=== PATIENT | male | born 1950 | race Caucasian/White ===

== ENCOUNTER → 2017-11-11 | Outpatient (CLI) | payer MEDICARE | END | disposition home or self-care (01) | LOC: LAB EV 19:25 → LAB SHORT 19:25 | DX: R19.7 Diarrhea, unspecified (principal) | CPT/HCPCS: 87015; 87045; 87046; 87177; 87205; 87209; 87899 ==

== ENCOUNTER → 2020-02-13 | Outpatient (CLI) | payer MEDICARE ==
[~2020-02-13] MED LIST: ACYC800 PO; ATOR10; CENTRUM SILVER1 EAC2; Lisinopril2.5 MG PO; PRAV20 PO; Prilosec10 M1; TRIDERM28.4 GM; XARELTO15 MG PO
[2020-02-13 12:38] LABS: BASOPHILS ABSOLUTE AUTO 0.07 K/mm3 (0.00-0.23); BASOPHILS PERCENT AUTO 1 % (0-2); EOSINOPHILS ABSOLUTE AUTO 0.21 K/mm3 (0.00-0.68); EOSINOPHILS PERCENT AUTO 3 % (0-6); Hematocrit 47.3 % (37.0-53.0); Hemoglobin 15.5 g/dL (13.5-17.5); IMMATURE GRAN ABSOLUTE AUTO 0.04 K/mm3 (0.00-0.10); IMMATURE GRAN PERCENT AUTO 1 % (0-1); LYMPHOCYTES ABSOLUTE AUTO 2.81 K/mm3 (0.84-5.20); LYMPHOCYTES PERCENT AUTO 36 % (21-46); MONOCYTES ABSOLUTE AUTO 0.76 K/mm3 (0.16-1.47); MONOCYTES PERCENT AUTO 10 % (4-13); Mean Corpuscular HGB 29.7 pg (26.0-34.0); Mean Corpuscular HGB Conc 32.8 g/dL (31.5-36.5); Mean Corpuscular Volume 91 fL (80-100); NEUTROPHILS ABSOLUTE AUTO 4.01 K/mm3 (1.96-9.15); NEUTROPHILS PERCENT AUTO 51 % (41-73); Platelet Count 261 K/mm3 (150-400); RDW Coefficient Variation 13.2 % (11.7-14.2); RDW Standard Deviation 44.6 fL (35.1-46.3); Red Blood Cell Count 5.22 M/mm3 (4.30-5.90)
[2020-02-13 13:14] LABS: Alanine Aminotransfer (ALT/SGP 44 U/L (12-78); Albumin, Blood 3.7 g/dL (3.4-5.0); Albumin/Globulin Ratio 1.1 (0.8-1.8); Alk Phos 95 U/L (50-136); Anion Gap 8 mmol/L (6-16); Aspartate Aminotrans (AST/SGOT 26 U/L (12-37); Bilirubin, Total 0.5 mg/dL (0.1-1.0); Blood Urea Nitrogen 19 mg/dL (8-24); Bun/Creatinine Ratio 19.2 (12.0-20.0); CHOL/HDL RATIO 6.5; CO2, Blood 22 mmol/L (21-32); Calcium, Blood 9.4 mg/dL (8.5-10.1); Chloride, Blood 110 mmol/L (98-108); Cholesterol 208 mg/dL (50-200); Creatinine, Blood 0.99 mg/dL (0.60-1.20); Globulin, Blood 3.4 g/dL (2.2-4.0); Glomerular Filtration Rate >60 (60-); Glucose, Blood 86 mg/dL (70-99); HDL Cholesterol 32 mg/dL (>39); LDL/HDL RATIO 3.8; Low Density Lipoprotein Chol 121 mg/dL (0-110); Sodium, Blood 140 mmol/L (136-145); Total Protein, Blood 7.1 g/dL (6.4-8.2); Triglycerides 274 mg/dL (30-160); Very Low Density Lipoprot Chol 54 mg/dL (6-32)
== END | disposition home or self-care (01) ==
LOC: LAB 08:15
PROVIDERS: Family Medicine
DX: E78.5 Hyperlipidemia, unspecified (principal); I10 Essential (primary) hypertension
CPT/HCPCS: 80053; 80061; 85025

== ENCOUNTER 2020-03-14 06:08 | Day surgery (SDC) | payer MEDICARE ==
[~2020-03-14] VITALS: Ht 170.2 cm; Wt 94.8 kg
[~2020-03-14 06:08] MED LIST changes: -ACYC800 PO; -Lisinopril2.5 MG PO; -PRAV20 PO; -XARELTO15 MG PO
[2020-03-14] MEDS ORDERED: PRAV20 PO (06:50)
[2020-03-14] MEDS ORDERED: ACYC800 PO (06:51)
[2020-03-14] MEDS ORDERED: Lisinopril2.5 MG PO (06:51)
--- NOTE | 2020-03-14 09:19 | NUR ---
03/14/20 0919 AUGUSTA ENRIQUEZ PT TO STEP DOWN VIA BED. UP TO RECLINER WITH SBA. VSS. PT ON ROOM AIR. TOLERATING PO INTAKE AND DENIES NAUSEA/VOMITING. REPORTS PAIN "1 OR 2" OUT OF 10. PT REPORTS IS TOLERABLE BUT IS AGREEABLE TO TAKING A TABLET OF PAIN MEDICATION PRIOR TO DISCHARGE. ENGAGED IN DC TEACHING. ALL QUESTIONS ASKED AND ANSWERED. IV DC'D. PT DC VIA WC TO BROTHER.
== END 2020-03-14 09:15 | disposition home or self-care (01) ==
LOC: ORSCSDS 06:08
PROVIDERS: Orthopaedic Surgery
PROC: 0SBD4ZZ Excision of Left Knee Joint, Percutaneous Endoscopic Approach (ICD-10-PCS; principal; 2020-03-14 07:30)
DX: S83.242A Other tear of medial meniscus, current injury, left knee, initial encounter (principal); M94.262 Chondromalacia, left knee; I10 Essential (primary) hypertension; Z79.899 Other long term (current) drug therapy
CPT/HCPCS: A9270; J0690; J1100; J1885; J2250; J2405; J2704; J3010; J7120

== ENCOUNTER 2020-03-24 17:59 | Emergency (ER) | payer MEDICARE ==
[~2020-03-24] VITALS: Ht 170.2 cm; Wt 99.8 kg
[~2020-03-24 17:59] MED LIST changes: +ACYC800 PO; +Lisinopril2.5 MG PO; +PRAV20 PO
[2020-03-24 18:33] LABS: BASOPHILS ABSOLUTE AUTO 0.05 K/mm3 (0.00-0.23); BASOPHILS PERCENT AUTO 0 % (0-2); EOSINOPHILS ABSOLUTE AUTO 0.14 K/mm3 (0.00-0.68); EOSINOPHILS PERCENT AUTO 1 % (0-6); Hematocrit 48.9 % (37.0-53.0); IMMATURE GRAN ABSOLUTE AUTO 0.08 K/mm3 (0.00-0.10); IMMATURE GRAN PERCENT AUTO 1 % (0-1); LYMPHOCYTES ABSOLUTE AUTO 3.71 K/mm3 (0.84-5.20); LYMPHOCYTES PERCENT AUTO 32 % (21-46); MONOCYTES ABSOLUTE AUTO 1.05 K/mm3 (0.16-1.47); MONOCYTES PERCENT AUTO 9 % (4-13); Mean Corpuscular HGB 29.7 pg (26.0-34.0); Mean Corpuscular HGB Conc 32.7 g/dL (31.5-36.5); Mean Corpuscular Volume 91 fL (80-100); Mean Platelet Volume 8.9 fL (9.1-12.4); NEUTROPHILS ABSOLUTE AUTO 6.71 K/mm3 (1.96-9.15); NEUTROPHILS PERCENT AUTO 57 % (41-73); Platelet Count 277 K/mm3 (150-400); RDW Coefficient Variation 13.5 % (11.7-14.2); RDW Standard Deviation 45.4 fL (35.1-46.3); Red Blood Cell Count 5.38 M/mm3 (4.30-5.90); White Blood Cell Count 11.74 K/mm3 (4.00-11.30)
[2020-03-24 18:52] LABS: Alanine Aminotransfer (ALT/SGP 33 U/L (12-78); Albumin, Blood 3.7 g/dL (3.4-5.0); Alk Phos 117 U/L (50-136); Anion Gap 3 mmol/L (6-16); Aspartate Aminotrans (AST/SGOT 18 U/L (12-37); Bilirubin, Total 0.5 mg/dL (0.1-1.0); Blood Urea Nitrogen 24 mg/dL (8-24); Bun/Creatinine Ratio 22.6 (12.0-20.0); CO2, Blood 26 mmol/L (21-32); Calcium, Blood 9.4 mg/dL (8.5-10.1); Chloride, Blood 113 mmol/L (98-108); Creatinine, Blood 1.06 mg/dL (0.60-1.20); Globulin, Blood 3.8 g/dL (2.2-4.0); Glomerular Filtration Rate >60 (60-); Glucose, Blood 87 mg/dL (70-99); Sodium, Blood 142 mmol/L (136-145); Total Protein, Blood 7.5 g/dL (6.4-8.2)
[2020-03-24] MEDS ORDERED: XARELTO15 MG PO (19:00)
== END 2020-03-24 19:10 | disposition home or self-care (01) ==
LOC: ER 17:59
PROVIDERS: Emergency Medicine
DX: I82.4Z2 Acute embolism and thrombosis of unspecified deep veins of left distal lower extremity (principal); Z86.718 Personal history of other venous thrombosis and embolism; Z79.899 Other long term (current) drug therapy; I82.452 Acute embolism and thrombosis of left peroneal vein; I82.442 Acute embolism and thrombosis of left tibial vein
CPT/HCPCS: 80053; 83690; 85025; 93971; 99283; A9270

== ENCOUNTER → 2021-11-18 | Outpatient (CLI) | payer OTHER ==
[~2021-11-18] MED LIST changes: +XARELTO15 MG PO
== END ==
LOC: LAB SHORT 06:00 → LAB FUT 11-05 18:35
DX: N13.2 Hydronephrosis with renal and ureteral calculous obstruction (principal)
CPT/HCPCS: 81050

== ENCOUNTER → 2022-04-03 | Outpatient (CLI) | payer OTHER ==
[2022-04-03 10:57] LABS: Source, Urine Clean Catch
[2022-04-03 10:59] LABS: Bacteria Not Seen /hpf; Red Blood Cells, Urine Not Seen /hpf (0-2); Squamous Epithelial Cells Not Seen /hpf (Few); White Blood Cells, Urine 0-2 /hpf (0-5)
== END | disposition home or self-care (01) ==
LOC: LAB 10:56 → LAB SHORT 10:56
PROVIDERS: Physician Assistant Medical
DX: R10.30 Lower abdominal pain, unspecified (principal)
CPT/HCPCS: 81015

== ENCOUNTER → 2022-10-05 | Outpatient (CLI) | payer OTHER ==
[2022-10-06 11:46] LABS: Adenovirus F 40/41 Not Detected (NOT DETECT); Astrovirus Not Detected (NOT DETECT); Campylobacter Sp Not Detected (NOT DETECT); Cryptosporidium Not Detected (NOT DETECT); Cyclospora Cayetanensis Not Detected (NOT DETECT); E. Coli O157 Not Detected (NOT DETECT); Entamoeba Histolytica Not Detected (NOT DETECT); Enteroaggregative E. coli-EAEC Not Detected (NOT DETECT); Enteropathogenic E. coli-EPEC Not Detected (NOT DETECT); Enterotoxigenic E. coli-ETEC Not Detected (NOT DETECT); Giardia Lamblia Not Detected (NOT DETECT); Norovirus GI/GII Not Detected (NOT DETECT); Plesiomonas Shigelloides Not Detected (NOT DETECT); Rotavirus A Not Detected (NOT DETECT); Salmonella Sp Not Detected (NOT DETECT); Sapovirus Not Detected (NOT DETECT); Shiga Toxin-prod E. coli-STEC Not Detected (NOT DETECT); Shigella/Enteroin E. coli-EIEC Not Detected (NOT DETECT); Vibrio Cholerae Not Detected (NOT DETECT); Vibrio Sp Not Detected (NOT DETECT); Yersinia Enterocolitica Not Detected (NOT DETECT)
== END ==
LOC: LAB SHORT 16:00 → LAB 16:00
PROVIDERS: Physician Assistant
DX: R19.7 Diarrhea, unspecified (principal)
CPT/HCPCS: 87507

== ENCOUNTER 2023-01-09 08:21 | Emergency (ER) | payer OTHER ==
[~2023-01-09] VITALS: Ht 170.2 cm; Wt 94.3 kg
[2023-01-09 10:02] LABS: BASOPHILS ABSOLUTE AUTO 0.04 K/mm3 (0.00-0.23); BASOPHILS PERCENT AUTO 1 % (0-2); EOSINOPHILS ABSOLUTE AUTO 0.24 K/mm3 (0.00-0.68); EOSINOPHILS PERCENT AUTO 3 % (0-6); Hematocrit 43.8 % (37.0-53.0); Hemoglobin 15.1 g/dL (13.5-17.5); IMMATURE GRAN ABSOLUTE AUTO 0.04 K/mm3 (0.00-0.10); IMMATURE GRAN PERCENT AUTO 1 % (0-1); LYMPHOCYTES ABSOLUTE AUTO 3.56 K/mm3 (0.84-5.20); LYMPHOCYTES PERCENT AUTO 44 % (21-46); MONOCYTES ABSOLUTE AUTO 0.74 K/mm3 (0.16-1.47); MONOCYTES PERCENT AUTO 9 % (4-13); Mean Corpuscular HGB 31.2 pg (26.0-34.0); Mean Corpuscular HGB Conc 34.5 g/dL (31.5-36.5); Mean Corpuscular Volume 91 fL (80-100); Mean Platelet Volume 9.5 fL (9.1-12.4); NEUTROPHILS ABSOLUTE AUTO 3.57 K/mm3 (1.96-9.15); NEUTROPHILS PERCENT AUTO 44 % (41-73); Platelet Count 242 K/mm3 (150-400); RDW Coefficient Variation 13.9 % (11.7-14.2); Red Blood Cell Count 4.84 M/mm3 (4.30-5.90); White Blood Cell Count 8.19 K/mm3 (4.00-11.30)
[2023-01-09 10:15] LABS: Albumin, Blood 3.7 g/dL (3.4-5.0); Bilirubin, Total 0.6 mg/dL (0.1-1.0); Bun/Creatinine Ratio 13.5 (12.0-20.0); Creatinine, Blood 1.11 mg/dL (0.60-1.20); Globulin, Blood 3.7 g/dL (2.2-4.0); Potassium, Blood 3.6 mmol/L (3.5-5.5); Total Protein, Blood 7.4 g/dL (6.4-8.2)
[2023-01-09 11:58] LABS: Source, Urine Clean Catch
[2023-01-09 12:02] LABS: Appearance, Urine Clear (Clear); Bilirubin, Urine Neg (Neg); Blood, Urine 3+ (Neg); Color, Urine Yellow (P-Yellow); Glucose Qualitative, Urine Neg (Neg); Ketones, Urine Neg (Neg); Leukocyte Esterase, Urine Neg (Neg); Nitrite, Urine Neg (Neg); Protein, Urine 2+ (Neg); Urobilinogen, Urine NORM (Normal)
[2023-01-09 12:22] LABS: Squamous Epithelial Cells Not Seen /hpf (Few)
[2023-01-09 12:23] LABS: Bacteria Rare /hpf; Mucus Light (0-Heavy)
[2023-01-09 12:24] LABS: Hyaline Casts 0-2 /lpf (0-2)
[2023-01-09] MEDS ORDERED: HYDR1TAB94 PO (12:27)
[2023-01-09] MEDS ORDERED: Flomax0.4 MG PO (12:27)
[2023-01-09 12:30] VITALS: BP 150/80
== END 2023-01-09 12:39 | disposition home or self-care (01) ==
LOC: ER 08:21
PROVIDERS: Physician Assistant
DX: N13.2 Hydronephrosis with renal and ureteral calculous obstruction (principal); Z79.899 Other long term (current) drug therapy; Z79.01 Long term (current) use of anticoagulants
CPT/HCPCS: 74177; 80053; 81001; 83690; 85025; 96374-59; 96375; 99284-25; J1170; J1885; Q9967

== ENCOUNTER 2023-06-11 10:32 | Observation (INO) | payer OTHER ==
[~2023-06-11] VITALS: Ht 170.2 cm; Wt 98.4 kg
[~2023-06-11 10:32] MED LIST changes: +Flomax0.4 MG PO; +HYDR1TAB94 PO
[2023-06-11] MEDS ORDERED: Diltiazem HCl 5 MG / ML 5ML Vial IV ONE (10:45)
[2023-06-11] MEDS ORDERED: Aspirin 325 MG Tab PO ONE (10:45)
[2023-06-11 10:55] LABS: BASOPHILS ABSOLUTE AUTO 0.03 K/mm3 (0.00-0.23); BASOPHILS PERCENT AUTO 0 % (0-2); EOSINOPHILS ABSOLUTE AUTO 0.04 K/mm3 (0.00-0.68); EOSINOPHILS PERCENT AUTO 0 % (0-6); Hematocrit 44.8 % (37.0-53.0); Hemoglobin 15.5 g/dL (13.5-17.5); IMMATURE GRAN ABSOLUTE AUTO 0.13 K/mm3 (0.00-0.10); IMMATURE GRAN PERCENT AUTO 1 % (0-1); LYMPHOCYTES ABSOLUTE AUTO 4.38 K/mm3 (0.84-5.20); LYMPHOCYTES PERCENT AUTO 36 % (21-46); MONOCYTES ABSOLUTE AUTO 1.02 K/mm3 (0.16-1.47); MONOCYTES PERCENT AUTO 8 % (4-13); Mean Corpuscular HGB 30.9 pg (26.0-34.0); Mean Corpuscular HGB Conc 34.6 g/dL (31.5-36.5); Mean Corpuscular Volume 89 fL (80-100); Mean Platelet Volume 9.3 fL (9.1-12.4); NEUTROPHILS ABSOLUTE AUTO 6.69 K/mm3 (1.96-9.15); NEUTROPHILS PERCENT AUTO 55 % (41-73); Platelet Count 272 K/mm3 (150-400); RDW Coefficient Variation 14.1 % (11.7-14.2); RDW Standard Deviation 45.9 fL (35.1-46.3); Red Blood Cell Count 5.01 M/mm3 (4.30-5.90); White Blood Cell Count 12.29 K/mm3 (4.00-11.30)
[2023-06-11 11:25] LABS: Albumin, Blood 3.8 g/dL (3.4-5.0); Albumin/Globulin Ratio 1.1 (0.8-1.8); Bilirubin, Total 0.5 mg/dL (0.1-1.0); Calcium, Blood 9.1 mg/dL (8.5-10.1); Globulin, Blood 3.5 g/dL (2.2-4.0); Potassium, Blood 3.5 mmol/L (3.5-5.5); Total Protein, Blood 7.3 g/dL (6.4-8.2)
[2023-06-11] MEDS ORDERED: dilTIAZem HCL 125 MG in Dextrose 5% 100 ML IV SCH (11:35)
[2023-06-11 13:30] LABS: Anti-Xa UFH, PHA Monitoring <0.10 IU/mL; Prothrombin Time Results 10.5 Sec (9.7-11.5)
[2023-06-11 13:31] VITALS: BP 141/83
[2023-06-11] MEDS ORDERED: OMEP20ER PO (13:37)
--- NOTE | 2023-06-11 13:54 | NUR ---
ADMISSION ASSESSMENT: PT BROUGHT FROM ER TO PCU ROOM 6 AT 1354 WITH DX OF A-FIB RVR. PT WENT TO URGENT CARE THIS AM CHEST PRESSURE THAT HE NOTICED WHEN GETTING HIS MAIL THIS AM, HE REPORTS HE HAD A SIMILAR EVENT 2 WEEKS AGO BUT THE SENSATION WENT AWAY AND HE DID NOT SEEK MEDICAL CARE. AT URGENT CARE HE WAS FOUND TO BE IN A-FIB RVR RATES 120-150S NO HX OF A-FIB. 20MG CARDIZEM WAS ADMINISTERED AND PT WAS SENT TO ED. IN ED 20MG CARDIZEM PUSH ADMINISTERED AGAIN AND NO CHANGE OF HR SO CARDIZEM DRIP INITIATED AT 5MG. PER ER NURSE REPORT PT HR 70-100S. UPON ASSESSMENT OF PT IN PCU, PT PLACED ON TELEMETRY AND RATE NO LONGER SHOWING A-FIB. RATE DISPLAYED SINUS RHYTHM AT 76BPM. PER REPORT PT HAS BEEN SINUS RHTYTHM SINCE 1208. CARDIZEM DCD AT 1358. PT IS AXO X 4. DENIES ANY CHEST PRESSURE OR PAIN AND REPORTS NO SOB OR DYSPNEA. LUNG SOUNDS CLEAR BUT SLIGHTLY DIMINSHED. PT HAS NO CARDAIC HX BESIDES HTN IN WHICH HE TAKES LISINOPRIL FOR. B/P STABLE AT THIS TIME. PT IS INDEPENDENT IN TRANSFER. HAS BILATERAL AC IVS 20G BOTH PATENT. PT NON-DIABETIC. REPORTS NO PAIN AT THIS TIME. AMBULATORY FROM [facility] TO BED. PT HAD NEGATIVE TROPS IN THE ED BUT WILL CONTINUE TO MONITOR, ECHO ORDERED AND HEPARIN CONSULT PUT IN BY . EDUCATED ON HEPARIN AND BLOOD THINNERS. PT ORIENTED TO ROOM AND CALL LIGHT, DENIES ANY CURRENT NEEDS. WILL CONTINUE TO PROVIDE CARE ORDERED AND REQUESTED.
[2023-06-11] MEDS ORDERED: Heparin Sodium 5000 Units/ML 1ML MDV IV ONE (14:00)
[2023-06-11] MEDS ORDERED: Heparin Sodium,Porcine/0.5 NS 500 ML IV SCH (14:00)
[2023-06-11 16:30] VITALS: BP 127/74
--- NOTE | 2023-06-11 17:51 | NUR ---
PCU DAY SHIFT SUMMARY: AFTER INITIAL ADMISSION ASSESSMENT NO ACUTE CHANGES IN PT CONDITION. REMAINED IN NORMAL SINUS RHYTHM RATE 70S. PT CONTINUED TO HAVE NEGATIVE TROPONINS AND HEPARIN DRIP WAS DCD. PT NOW HAS LOVENOX ORDERED FOR ANTICOAGULATION. MOVED FROM PCU TO MED FLOOR STATUS. PLAN TO COMPLETE ECHO BEFORE ASSESSING NEED FOR STRESS TEST. PT REMAINS POLITE AND COOPERATIVE WITH STAFF. WILL CONTINUE TO COMPLETE ORDERS REQUESTED AND ORDERED.
[2023-06-11] MEDS ORDERED: Enoxaparin 100 MG/ML 1ML SYR SC SCH (19:00)
[2023-06-11 20:00] VITALS: BP 144/84
[2023-06-11] MEDS ORDERED: Metoprolol Tartrate 25 MG Tab PO SCH (21:00)
[2023-06-12 03:27] VITALS: BP 144/78
[2023-06-12 04:06] LABS: BASOPHILS ABSOLUTE AUTO 0.06 K/mm3 (0.00-0.23); BASOPHILS PERCENT AUTO 1 % (0-2); EOSINOPHILS ABSOLUTE AUTO 0.12 K/mm3 (0.00-0.68); EOSINOPHILS PERCENT AUTO 1 % (0-6); Hematocrit 43.3 % (37.0-53.0); Hemoglobin 14.8 g/dL (13.5-17.5); IMMATURE GRAN ABSOLUTE AUTO 0.12 K/mm3 (0.00-0.10); IMMATURE GRAN PERCENT AUTO 1 % (0-1); LYMPHOCYTES ABSOLUTE AUTO 4.26 K/mm3 (0.84-5.20); LYMPHOCYTES PERCENT AUTO 38 % (21-46); MONOCYTES ABSOLUTE AUTO 1.12 K/mm3 (0.16-1.47); MONOCYTES PERCENT AUTO 10 % (4-13); Mean Corpuscular HGB 30.3 pg (26.0-34.0); Mean Corpuscular HGB Conc 34.2 g/dL (31.5-36.5); Mean Corpuscular Volume 89 fL (80-100); Mean Platelet Volume 9.3 fL (9.1-12.4); NEUTROPHILS ABSOLUTE AUTO 5.62 K/mm3 (1.96-9.15); NEUTROPHILS PERCENT AUTO 50 % (41-73); Platelet Count 258 K/mm3 (150-400); RDW Coefficient Variation 14.1 % (11.7-14.2); RDW Standard Deviation 45.7 fL (35.1-46.3); Red Blood Cell Count 4.89 M/mm3 (4.30-5.90)
[2023-06-12 04:32] LABS: Bun/Creatinine Ratio 22.1 (12.0-20.0); Calcium, Blood 9.1 mg/dL (8.5-10.1); Creatinine, Blood 0.95 mg/dL (0.60-1.20); Potassium, Blood 4.2 mmol/L (3.5-5.5)
--- NOTE | 2023-06-12 05:18 | NUR ---
SHIFT SUMMARY PT TRANSFERED TO [facility] @ 0319 THIS SHIFT. REPORT TAKEN FROM PCU NURSE. NO CHANGES SINCE ARRIVAL TO [facility] FLOOR. PT STATES HE FEELS WELL AND IS LOOKING FORWARD TO GOING HOME AFTER HIS ECHO TODAY. HE IS A&O X 4 AND INDEPENDANT IN THE ROOM.
[2023-06-12] MEDS ORDERED: Omeprazole 20 MG CapCR PO SCH (06:00)
[2023-06-12 07:31] VITALS: BP 139/90
[2023-06-12] MEDS ORDERED: Aspirin 81 MG Chew PO SCH (09:00)
[2023-06-12] MEDS ORDERED: Lisinopril 5 MG Tab PO SCH (09:00)
[2023-06-12] MEDS ORDERED: Atorvastatin 40 MG Tab PO SCH (09:00)
[2023-06-12] MEDS ORDERED: Tamsulosin HCl 0.4 MG Cap PO SCH (09:00)
[2023-06-12] MEDS ORDERED: Acetaminophen 325 MG TABLET PO PRN (10:45)
[2023-06-12 15:56] VITALS: BP 126/79
--- NOTE | 2023-06-12 17:02 | NUR ---
DISCHARGE PATIENT ECHO IMAGING, READ BY DR. MLULER AND PATIENT DISCHARGED HOME WITH PCP FOLLOW UP INSTRUCTIONS. TELE SENT BACK TO PCU. IVS TAKEN OUT WITH NO COMPLICATIONS. PATIENT IS LEAVING VIA PRIVAE VEHICLE. READS AND VERBALIZES ALL INSTRUCTIONS, [facility]
== END 2023-06-12 16:59 | disposition home or self-care (01) ==
LOC: ER 10:32 → PCU 10:33 → MEDS 06-12 03:16
PROVIDERS: Emergency Medicine; ADMIT Internal Medicine
DX: I48.91 Unspecified atrial fibrillation (principal); I10 Essential (primary) hypertension; K21.9 Gastro-esophageal reflux disease without esophagitis; N40.0 Benign prostatic hyperplasia without lower urinary tract symptoms; H91.91 Unspecified hearing loss, right ear; E78.5 Hyperlipidemia, unspecified; Z86.718 Personal history of other venous thrombosis and embolism; Z79.899 Other long term (current) drug therapy
CPT/HCPCS: 36415; 71045; 80048; 80053; 83880; 84484; 85025; 85520; 85610; 85730; 93306; 96365; 96375; 96376; 99285-25; A9270; G0378; J1644; J1650

== ENCOUNTER 2024-09-07 07:13 | Emergency (ER) | payer OTHER ==
[~2024-09-07] VITALS: Ht 170.2 cm; Wt 93.4 kg
[~2024-09-07 07:13] MED LIST changes: +OMEP20ER PO
[2024-09-07] MEDS ORDERED: ACYCLOVIR800 MG PO (07:46)
[2024-09-07] MEDS ORDERED: ELIQUIS5 M3 PO (07:46)
[2024-09-07] MEDS ORDERED: MELO7.5 PO (07:46)
[2024-09-07] MEDS ORDERED: Bisoprolol Fumar5 MG PO (07:47)
[2024-09-07 08:06] LABS: BASOPHILS ABSOLUTE AUTO 0.05 K/mm3 (0.00-0.23); BASOPHILS PERCENT AUTO 1 % (0-2); EOSINOPHILS ABSOLUTE AUTO 0.26 K/mm3 (0.00-0.68); EOSINOPHILS PERCENT AUTO 3 % (0-6); Hematocrit 41.3 % (37.0-53.0); Hemoglobin 14.1 g/dL (13.5-17.5); IMMATURE GRAN ABSOLUTE AUTO 0.03 K/mm3 (0.00-0.10); IMMATURE GRAN PERCENT AUTO 0 % (0-1); LYMPHOCYTES ABSOLUTE AUTO 3.03 K/mm3 (0.84-5.20); LYMPHOCYTES PERCENT AUTO 38 % (21-46); MONOCYTES ABSOLUTE AUTO 0.69 K/mm3 (0.16-1.47); MONOCYTES PERCENT AUTO 9 % (4-13); Mean Corpuscular HGB Conc 34.1 g/dL (31.5-36.5); Mean Corpuscular Volume 92 fL (80-100); NEUTROPHILS ABSOLUTE AUTO 3.99 K/mm3 (1.96-9.15); NEUTROPHILS PERCENT AUTO 50 % (41-73); NRBC ABSOLUTE 0.00 K/mm3 (0.00-0.02); NRBC Auto 0.0 /100 WBC (0.0-0.2); Platelet Count 218 K/mm3 (150-400); RDW Coefficient Variation 13.2 % (11.7-14.2); RDW Standard Deviation 44.8 fL (35.1-46.3)
[2024-09-07 08:19] LABS: Alanine Aminotransfer (ALT/SGP 24.0 U/L (12-78); Albumin, Blood 3.6 g/dL (3.4-5.0); Albumin/Globulin Ratio 1.2 (0.8-1.8); Anion Gap 7.0 mmol/L (3-11); Aspartate Aminotrans (AST/SGOT 16.0 U/L (12-37); Bilirubin, Total 0.7 mg/dL (0.1-1.0); Blood Urea Nitrogen 24.0 mg/dL (8-24); CO2, Blood 26.0 mmol/L (21-32); Calcium, Blood 9.1 mg/dL (8.5-10.1); Chloride, Blood 112.0 mmol/L (98-108); Creatinine, Blood 0.94 mg/dL (0.60-1.20); Globulin, Blood 3.0 g/dL (2.2-4.0); Glucose, Blood 109.0 mg/dL (70-99); Potassium, Blood 3.7 mmol/L (3.5-5.5); Sodium, Blood 141.0 mmol/L (136-145); Total Protein, Blood 6.6 g/dL (6.4-8.2)
[2024-09-07 10:00] VITALS: BP 137/82
== END 2024-09-07 10:25 | disposition home or self-care (01) ==
LOC: ER 07:13
PROVIDERS: Emergency Medicine
DX: R00.2 Palpitations (principal); I10 Essential (primary) hypertension; I48.91 Unspecified atrial fibrillation; K21.9 Gastro-esophageal reflux disease without esophagitis; E78.5 Hyperlipidemia, unspecified; Z79.899 Other long term (current) drug therapy
CPT/HCPCS: 71045; 80053; 83880; 84484; 85025; 93005; 93010; 99285-25

== ENCOUNTER → 2024-11-24 | Outpatient (CLI) | payer OTHER ==
[~2024-11-24] MED LIST changes: +ACYCLOVIR800 MG PO; +Bisoprolol Fumar5 MG PO; +ELIQUIS5 M3 PO; +MELO7.5 PO
[2024-11-24 18:02] LABS: Source, Urine Clean Catch
[2024-11-24 18:17] LABS: Red Blood Cells, Urine TNTC /hpf (0-2)
== END ==
LOC: LAB SHORT 18:00 → LAB 18:00
PROVIDERS: Family Medicine
DX: R30.0 Dysuria (principal)
CPT/HCPCS: 81015; 87086